=== PATIENT | female | born 1980 | race Caucasian/White ===

== ENCOUNTER 2023-01-26 16:24 | Emergency (ER) | payer OTHER ==
[~2023-01-26] VITALS: Ht 157.5 cm; Wt 50.0 kg
[2023-01-26] MEDS ORDERED: ALBU6.7H6 INH (16:37)
[2023-01-26] MEDS ORDERED: FLUT44IN INH (16:38)
[2023-01-26 18:48] VITALS: BP 107/64; TEMP 97.8; O2SAT 96
== END 2023-01-26 19:00 | disposition home or self-care (01) ==
LOC: M ED 16:24
DX: S56.911A Strain of unspecified muscles, fascia and tendons at forearm level, right arm, initial encounter (principal); W19.XXXA Unspecified fall, initial encounter; W00.0XXA Fall on same level due to ice and snow, initial encounter; Y92.89 Other specified places as the place of occurrence of the external cause; Y93.21 Activity, ice skating

== ENCOUNTER 2024-03-01 16:18 | Emergency (ER) | payer OTHER ==
[~2024-03-01] VITALS: Ht 157.5 cm; Wt 46.9 kg
[~2024-03-01 16:18] MED LIST: ALBU6.7H6 INH; FLUT44IN INH
[2024-03-01] MEDS ORDERED: [UNRECOGNIZED DRUG - REMARK] PO (16:43)
[2024-03-01] MEDS ORDERED: AMOX500T PO (18:49)
[2024-03-01 18:59] VITALS: BP 116/61; TEMP 98.5; O2SAT 100
[2024-03-01] MEDS: AMOXICILLIN 500 MG CAP PO ONE (19:09)
== END 2024-03-01 19:00 | disposition home or self-care (01) ==
LOC: M ED 16:18
DX: J18.9 Pneumonia, unspecified organism (principal); J45.909 Unspecified asthma, uncomplicated; F12.10 Cannabis abuse, uncomplicated; F10.10 Alcohol abuse, uncomplicated

== ENCOUNTER 2024-05-29 13:12 | Emergency (ER) | payer OTHER ==
[~2024-05-29] VITALS: Ht 157.5 cm; Wt 49.8 kg
[~2024-05-29 13:12] MED LIST changes: +AMOX500T PO; +[UNRECOGNIZED DRUG - REMARK] PO
[2024-05-29 15:36] VITALS: BP 98/53; TEMP 98.3; O2SAT 100
== END 2024-05-29 15:37 | disposition home or self-care (01) ==
LOC: M ED 13:12
DX: S90.31XA Contusion of right foot, initial encounter (principal); Y92.9 Unspecified place or not applicable; Y93.9 Activity, unspecified; Y99.9 Unspecified external cause status; Z79.2 Long term (current) use of antibiotics

== ENCOUNTER 2025-02-03 08:02 | Emergency (ER) | payer OTHER ==
[~2025-02-03] VITALS: Ht 157.5 cm; Wt 50.2 kg
[2025-02-03 09:55] VITALS: BP 114/65; TEMP 96.8; O2SAT 100
[2025-02-03 10:09] LABS: BASO # 0.0 10^3/uL (0.0-0.2); BASO % 0.4 % (0.0-1.0); EOS # 0.1 10^3/uL (0.0-0.5); EOS % 1.0 % (0.0-3.0); LYMPH # 2.3 10^3/uL (1.5-5.0); LYMPH % 32.8 % (24.0-44.0); MONO # 0.6 10^3/uL (0.0-0.8); MONO % 8.0 % (2.0-8.0); NEUTROPHILS # 4.0 10^3/uL (1.5-8.5); NEUTROPHILS % 57.5 % (36.0-66.0); PLATELET COUNT, AUTOMATED 218 10^3/uL (150-450)
[2025-02-03 10:12] LABS: KETONE, URINE AUTO RFX NEGATIVE (NEGATIVE); LEUKOCYTE ESTERASE UR AUTO RFX NEGATIVE (NEGATIVE); NITRITE, URINE AUTO RFX NEGATIVE (NEGATIVE); RBC, URINE AUTO RFX 0 /HPF (0-3); SQUAM EPITHELIAL CELL UR AURFX 0 /HPF (0-6); WBC, URINE AUTO RFX 0 /HPF (0-3)
[2025-02-03 10:18] LABS: HCG, SERUM QUALITATIVE NEGATIVE (NEGATIVE)
[2025-02-03 10:34] LABS: ALT/SGPT 35 U/L (7.0-40); AST/SGOT 43 U/L (<34); CALCIUM LEVEL 9.3 MG/DL (8.5-10.1); CARBON DIOXIDE LEVEL 18 MMOL/L (20-31); CHLORIDE LEVEL 104 MMOL/L (98-107); CREATININE FOR GFR 0.82 MG/DL (0.55-1.30); GLOMERULAR FILTRATION RATE 89.8 (>58); POTASSIUM SERUM 5.1 MMOL/L (3.5-5.1); SODIUM LEVEL 138 MMOL/L (136-145)
== END 2025-02-03 14:35 | disposition left against medical advice (07) ==
LOC: M ED 08:02
DX: Z53.21 Procedure and treatment not carried out due to patient leaving prior to being seen by health care provider (principal)

== ENCOUNTER 2025-03-05 15:11 | Emergency (ER) | payer OTHER ==
[~2025-03-05] VITALS: Ht 157.5 cm; Wt 50.1 kg
[2025-03-05] MEDS ORDERED: FLUT10.6 (15:19)
[2025-03-05] MEDS ORDERED: AMOX875T2 (15:19)
[2025-03-05] MEDS ORDERED: ALBU8.5H (15:19)
[2025-03-05] MEDS: OMEPRAZOLE 20MG CAP PO ONE (17:37)
[2025-03-05] MEDS: IPRATROPIUM 0.5 MG/ALBUTEROL 2.5 MG INH SOL UD 3 ML NEB ONE (18:14)
[2025-03-05] MEDS ORDERED: OMEP-173 PO (18:49)
[2025-03-05 19:04] VITALS: BP 107/56; TEMP 98.1; O2SAT 98
== END 2025-03-05 19:05 | disposition home or self-care (01) ==
LOC: M ED 15:11
DX: R05.3 Chronic cough (principal); K21.9 Gastro-esophageal reflux disease without esophagitis; J45.909 Unspecified asthma, uncomplicated; Z79.51 Long term (current) use of inhaled steroids; Z79.2 Long term (current) use of antibiotics; Z79.899 Other long term (current) drug therapy

== ENCOUNTER 2025-03-22 15:36 | Emergency (ER) | payer OTHER ==
[~2025-03-22] VITALS: Ht 157.5 cm; Wt 52.3 kg
[~2025-03-22 15:36] MED LIST changes: +ALBU8.5H; +AMOX875T2; +FLUT10.6; +OMEP-173 PO
[2025-03-22] MEDS ORDERED: PANT40TA29 (15:43)
[2025-03-22] MEDS ORDERED: ISOVUE-370 76% 100 ML VIAL As Ordered ONE (16:48)
[2025-03-22 17:08] LABS: BASO # 0.0 10^3/uL (0.0-0.2); BASO % 0.2 % (0.0-1.0); EOS # 0.1 10^3/uL (0.0-0.5); EOS % 0.5 % (0.0-3.0); LYMPH # 2.4 10^3/uL (1.5-5.0); LYMPH % 25.9 % (24.0-44.0); MONO # 0.5 10^3/uL (0.0-0.8); MONO % 5.7 % (2.0-8.0); NEUTROPHILS # 6.3 10^3/uL (1.5-8.5); NEUTROPHILS % 67.5 % (36.0-66.0); PLATELET COUNT, AUTOMATED 256 10^3/uL (150-450)
[2025-03-22] MEDS: PANTOPRAZOLE 40MG VIAL IV ONE (17:16)
[2025-03-22] MEDS: HYOSCYAMINE SULFATE 0.125 MG SUBL TABLET PO ONE (17:16)
[2025-03-22] MEDS: NS (Normal Saline) 0.9% 1,000 ML IV ONE (17:16)
[2025-03-22] MEDS: MAALOX 30 ML SUSP *UDC PO ONE (17:16)
[2025-03-22] MEDS: LIDOCAINE VISCOUS 2% SOLN 15 ML UDC PO ONE (17:16)
[2025-03-22 17:18] LABS: KETONE, URINE AUTO RFX NEGATIVE (NEGATIVE); LEUKOCYTE ESTERASE UR AUTO RFX NEGATIVE (NEGATIVE); NITRITE, URINE AUTO RFX NEGATIVE (NEGATIVE); RBC, URINE AUTO RFX 0 /HPF (0-3); SQUAM EPITHELIAL CELL UR AURFX 1 /HPF (0-6); WBC, URINE AUTO RFX 0 /HPF (0-3)
[2025-03-22 17:35] LABS: ALT/SGPT 19 U/L (7.0-40); AST/SGOT 21 U/L (<34); CALCIUM LEVEL 9.7 MG/DL (8.5-10.1); CARBON DIOXIDE LEVEL 25 MMOL/L (20-31); CHLORIDE LEVEL 102 MMOL/L (98-107); CK-MB VALUE MASS < 1.0 NG/ML (<3.6); CREATININE FOR GFR 0.82 MG/DL (0.55-1.30); GLOMERULAR FILTRATION RATE 89.8 (>58); POTASSIUM SERUM 4.5 MMOL/L (3.5-5.1); SODIUM LEVEL 140 MMOL/L (136-145)
[2025-03-22 17:38] LABS: CPK CREATINE PHOSPHOKINASE 94 U/L (34-145)
[2025-03-22] MEDS: ACETAMINOPHEN *IV* 1,000 MG in IV 1 EA IV ONE (17:45)
[2025-03-22 18:29] LABS: CK-MB VALUE MASS < 1.0 NG/ML (<3.6)
[2025-03-22 19:05] LABS: CPK CREATINE PHOSPHOKINASE 73 U/L (34-145)
[2025-03-22] MEDS ORDERED: CARA1TAB6 PO (21:29)
[2025-03-22 21:54] VITALS: BP 110/51; TEMP 98.1; O2SAT 98
== END 2025-03-22 22:14 | disposition home or self-care (01) ==
LOC: M ED 15:36
DX: A08.39 Other viral enteritis (principal); R10.13 Epigastric pain; R00.1 Bradycardia, unspecified; J45.909 Unspecified asthma, uncomplicated; F12.10 Cannabis abuse, uncomplicated; F10.10 Alcohol abuse, uncomplicated; Z79.51 Long term (current) use of inhaled steroids; Z79.899 Other long term (current) drug therapy
CPT/HCPCS: 71046; 71275; 74177; 80047; 80048; 80076; 81001; 82550; 82553; 83605; 83690; 84484; 85025; 93005; 93041; 96365; 96366; 96375; 99284; J0134; J2470; Q9967